=== PATIENT | male | born 1955 | race Caucasian/White ===

== ENCOUNTER 2020-03-09 09:24 | Outpatient (CLI) | payer OTHER, SELFPAY ==
--- NOTE | ~2020-03-09 | NM_ITS ---
EXAMINATION: NM bone scan whole body DATE: 03/09/2020 12:31 INDICATION: Prostate cancer. TECHNIQUE: 22.66 mCi Tc-99m HDP was administered intravenously. Delayed whole-body scintigrams were obtained. COMPARISON: CT abdomen and pelvis 06/14/2010, chest 2 views 03/09/2020 FINDINGS: There is increased activity in the knees, shoulders, and wrists without radiographic compar paris, likely osteoarthritis. IMPRESSION: 1. No evidence of metastatic disease. Reviewed, dictated and finalized at location A.
--- NOTE | ~2020-03-09 | XR_ITS ---
XR chest 2V 03/09/2020 09:48 Indication: Prostate cancer. Evaluate for metastases. Procedure: PA and lateral views of the chest Comparison: 03/06/2017 Findings: Heart size normal. No focal air space disease, pulmonary edema, pleural effusion or suspect ed pneumothorax. No sclerotic lesions are identified. Impression: 1: No acute cardiopulmonary disease. Reviewed, dictated and finalized at location A. Impression: 1: No acute cardiopulmonary disease.
== END 2020-03-09 09:25 | disposition home or self-care (01) ==
PROVIDERS: PCP Emergency Medicine
DX: C61 Malignant neoplasm of prostate (principal)
CPT/HCPCS: 71046; 78306; A9561

== ENCOUNTER 2020-03-12 07:55 | Outpatient (CLI) | payer OTHER, SELFPAY ==
--- NOTE | ~2020-03-12 | CT_ITS ---
EXAMINATION: CT abdomen pelvis wo/w con DATE: 03/12/2020 08:55 INDICATION: Prostate cancer TECHNIQUE: Computed tomography (CT) of the abdomen and pelvis was performed without intravenous contr ast. CT of the abdomen and pelvis was then performed with a total of 130 mL Omnipaque 350 intravenous contrast using a double-bolus technique for simultaneous opacification of the renal parenchyma and r enal collecting system. The dose-length product (DLP) was 1971.66 mGy-cm. Automated exposure control and iterative reconstruction technique were employed. COMPARISON: 06/14/2010 FINDINGS: The lung bases are clear. The heart size is normal. The liver, spleen, pancreas, gallbladde r, and adrenal glands are normal. No stones are identified in the kidneys, ureters, or bladder. There is no hydronephrosis or hydroureter. No suspicious renal or urothelial lesion is identified. Cysts o f the kidneys measure up to 1.1 cm on the right and 1.2 cm on the left. No pathologically enlarged ab dominal or pelvic lymph nodes are identified. There is no free intraperitoneal gas or evidence of bow el obstruction. The appendix is normal. There are fat-containing umbilical and left inguinal hernias. IMPRESSION: 1. No evidence of metastatic disease. No suspicious renal or urothelial lesion. Reviewed, dictated and finalized at location A.
[2020-03-12 08:37] LABS: Estimated Glomerular Filt Rate > 60
== END 2020-03-12 07:56 | disposition home or self-care (01) ==
PROVIDERS: PCP Emergency Medicine
DX: C61 Malignant neoplasm of prostate (principal)
CPT/HCPCS: 36415; 74178; Q9967

== ENCOUNTER 2023-04-21 02:18 | Day surgery (SDC) | payer MEDICARE, SELFPAY ==
[2023-04-06 13:48] VITALS: BMI 29.9
--- NOTE | 2023-04-20 14:45 | PM.HPGS ---
History of Present Illness History of Present Illness Consent: Risks, benefits, and alternatives have been discussed and questions answered. Patient agrees to proceed with procedure. Chief complaint: neoplasm screening Narrative: Simon Araujo Sr. is a 68 year old male Referred for colon cancer screening. He had several polyps removed about 4 years ago. Review of Systems Review of Systems: All systems reviewed & are unremarkable except as noted in HPI and below PMFSH Past Medical History Medical History Abnormal PSA Hypothyroidism (acquired) Family History Family History Father Family history of congestive heart failure, Onset Age: 67 Social History Social History Smoking status: Never smoker Alcohol intake: current Alcohol use details: 1 glass of wine a day Substance use: never Substance use type: does not use Living arrangements: with family Spiritual care concerns: No Meds Home Medications and Allergies Home Medications Medication Instructions Recorded Confirmed Type levothyroxine 175 mcg tablet See Rx Instructions .Route 04/29/22 04/06/23 Rx .COMPLEX #90 tabs atenolol 50 mg tablet See Rx Instructions .Route 03/01/23 04/06/23 Rx .COMPLEX #90 tabs simvastatin 10 mg tablet See Rx Instructions .Route 04/10/23 04/21/23 Rx .COMPLEX #90 tabs Allergies Allergy/AdvReac Type Severity Reaction Status Date / Time No Known Allergies Allergy Verified 04/21/23 07:26 Exam Resp: Auscultation: clear to auscultation bilaterally Cardio: Rate: regular rate Rhythm: regular rhythm GI: GI Palp: Yes Soft to palpation and No Tenderness to palpation present (GI) Assessment and Plan Assessment and plan (1) Colon cancer screening: Code(s): Z12.11 - Encounter for screening for malignant neoplasm of colon Status: Acute Assessment and Plan: Colonoscopy with possible biopsy or polypectomy or cautery or injection of substances.
[2023-04-21 07:27] VITALS: BP 142/74; PULSE 67; RESP 19; TEMP 36.2; O2SAT 100
[2023-04-21] MEDS: LACTATED RINGERS 1,000 ML 150 ML IV CONT (07:37)
--- NOTE | 2023-04-21 08:24 | WPDANESEPPF ---
Anes - Initial Pre Proc Eval Procedure: Operation Date: 04/21/23 08:30 Proposed Procedures p Screening Colonoscopy - Pierce Rendon MD Date/Time: 04/21/23 08:24 Surgeon: Pierce Rendon MD Pre Op Diagnosis: neoplasm screening Patient Data Age: 68 Gender: M Height: 1.83 m Weight: 100.9 kg Last Vital Signs Temp 97.1 F L 04/21/23 07:27 Pulse 67 04/21/23 07:27 Resp 19 04/21/23 07:27 BP 142/74 H 04/21/23 07:27 Pulse Ox 100 04/21/23 07:27 O2 Del Method Room Air 04/21/23 07:27 Allergies Allergy/AdvReac Type Severity Reaction Status Date / Time No Known Allergies Allergy Verified 04/21/23 07:26 Home Medications Medication Instructions Recorded Confirmed Type levothyroxine 175 mcg tablet See Rx Instructions .Route 04/29/22 04/06/23 Rx .COMPLEX #90 tabs atenolol 50 mg tablet See Rx Instructions .Route 03/01/23 04/06/23 Rx .COMPLEX #90 tabs simvastatin 10 mg tablet See Rx Instructions .Route 04/10/23 04/21/23 Rx .COMPLEX #90 tabs Patient hx anesthesia problems: none Family hx anesthesia problems: none Results Review: All pre-operative results and documents have been reviewed as part of the pre-operative evaluation. COUNTS INCLUDE 234 BEDS AT THE [facility] Past Medical History Medical History Abnormal PSA Hypothyroidism (acquired) Family History Family History Father Family history of congestive heart failure, Onset Age: 67 Social History Social History Smoking status: Never smoker Alcohol intake: current Alcohol use details: 1 glass of wine a day Substance use: never Substance use type: does not use Living arrangements: with family Spiritual care concerns: No Anes - Eval Final PreProcedure Day of Procedure 04/21/23 08:24 Patient weight: obese Heart: regular rate and rhythm Lungs: clear to auscultation Airway: Mallampati scale class II Neurological: alert and oriented Last oral intake: >/= 8 hours ASA classification: III Emergent: no Anesthetic plan: proceed Anesthesia type and monitoring: general GIVS and standard monitoring Results Review: All pre-operative results and documents have been reviewed as part of the pre-operative evaluation. Informed Consent: The patient's anesthetic plan and its attendant risks and benefits were discussed with the patient/family/POA. Questions were solicited and answers provided to the satisfaction of the patient/family/POA.
[2023-04-21] MEDS: SIMETHICONE ORAL SUSPENSION 20 MG/0.3 ML 30 ML BOTTLE 0.6 ML IRRIGATION (08:39)
[2023-04-21 08:48] VITALS: BP 92/60; PULSE 67; RESP 19; O2SAT 92
[2023-04-21 08:58] VITALS: BP 115/75; PULSE 67; RESP 19; O2SAT 92
[2023-04-21 09:08] VITALS: BP 125/74; PULSE 68; RESP 19; O2SAT 92
== END 2023-04-21 09:12 | disposition home or self-care (01) ==
PROVIDERS: PCP Emergency Medicine; Visit Provider Internal Medicine Gastroenterology
PROC: 0DJD8ZZ Inspection of Lower Intestinal Tract, Via Natural or Artificial Opening Endoscopic (ICD-10-PCS; CPT 45378; principal; 2023-04-21 08:30)
DX: Z12.11 Encounter for screening for malignant neoplasm of colon (principal); D12.8 Benign neoplasm of rectum; K57.30 Diverticulosis of large intestine without perforation or abscess without bleeding; E03.9 Hypothyroidism, unspecified
CPT/HCPCS: 45380; 88305; J2001; J2704; J7120